=== PATIENT | female | born 1985 | race Caucasian/White ===

== ENCOUNTER 2018-07-10 05:44 | Observation (INO) | payer MEDICAID ==
[~2018-07-10] VITALS: Ht 175.3 cm; Wt 77.2 kg
[2018-07-10] VITALS (15 sets, daily range): BP systolic 93–151; BP diastolic 61–90
[2018-07-10 06:15] LABS: BASOPHILS # (AUTO) 0.1 X10'3 (0-0.2); BASOPHILS % (AUTO) 0.4 % (0-1); EOSINOPHILS # (AUTO) 0.1 X10'3 (0-0.9); EOSINOPHILS % (AUTO) 0.7 % (0-6); HEMATOCRIT 44.2 % (35.0-45.0); HEMOGLOBIN 15.2 g/dl (12.0-16.0); LYMPHOCYTES # (AUTO) 3.8 X10'3 (1.1-4.8); LYMPHOCYTES % (AUTO) 27.9 % (21-51); MEAN CORPUSCULAR HEMOGLOBIN 31.7 PG (27.0-31.0); MEAN CORPUSCULAR HGB CONC 34.3 % (33.0-36.5); MEAN CORPUSCULAR VOLUME 92.5 FL (78-98); MEAN PLATELET VOLUME 8.3 FL (7.4-10.4); MONOCYTES # (AUTO) 0.5 X10'3 (0-0.9); MONOCYTES % (AUTO) 3.8 % (2-12); NEUTROPHILS # (AUTO) 9.2 X10'3 (1.8-7.7); NEUTROPHILS % (AUTO) 67.2 % (42-75); PLATELET COUNT 321 X10'3 (140-440); RED BLOOD COUNT 4.78 X10'6 (4.20-5.60); RED CELL DISTRIBUTION WIDTH 15.2 % (11.5-14.5); WHITE BLOOD COUNT 13.6 X10'3 (4.5-11.0)
[2018-07-10] MEDS ORDERED: ondansetron/PF 4mg/2ml inj IV ONE (06:20)
[2018-07-10] MEDS ORDERED: normal saline 1000ML IV soln IVB ONE (06:20)
[2018-07-10 06:24] LABS: CLARITY,URINE CLEAR (Clear); COLOR,URINE YELLOW (Yellow); GLUCOSE, URINE NEGATIVE (Neg); KETONES,URINE NEGATIVE (Neg); LEUKOCYTE ESTERASE ,URINE NEGATIVE (Neg); NITRITES, URINE NEGATIVE (Neg); OCCULT BLOOD,URINE NEGATIVE (Neg); PROTEIN,URINE NEGATIVE (Neg); UROBILINOGEN,URINE 0.2 E.U/dL (0.2-1.0)
[2018-07-10 06:25] LABS: UA COLLECTION TYPE CLN CATCH MIDSTREAM; URINE HCG NEGATIVE (NEG)
[2018-07-10] MEDS: morphine 4 MG/ML inj SYRINge IV PRN ×4 (06:26→22:03)
[2018-07-10 06:30] LABS: ALANINE AMINOTRANSFERASE 57 U/L (12-78); ALBUMIN 3.9 G/DL (3.4-5.0); ALBUMIN/GLOBULIN RATIO 1.1 (1.1-1.5); ALKALINE PHOSPHATASE 89 IU/L (46-116); ANION GAP 6 (8-16); ASPARTATE AMINO TRANSFERASE 86 U/L (10-37); BILIRUBIN,TOTAL 0.4 MG/DL (0.1-1.0); BLOOD UREA NITROGEN 10 MG/DL (7-18); BUN/CREATININE RATIO 11.4 (6.6-38.0); CALCIUM 8.9 MG/DL (8.5-10.1); CHLORIDE 103 MMOL/L (99-107); CREATININE 0.88 MG/DL (0.40-0.90); GLUCOSE 104 MG/DL (70-104); POTASSIUM 3.6 MMOL/L (3.5-5.1); SODIUM 139 MMOL/L (135-145); TOTAL CARBON DIOXIDE 29.6 MMOL/L (24-32); TOTAL PROTEIN 7.4 G/DL (6.4-8.2); eGFR 74 ML/MIN
[2018-07-10] MEDS ORDERED: NO HOME MEDS (06:34)
[2018-07-10 06:53] LABS: LIPASE 360 U/L (73-393)
[2018-07-10] MEDS ORDERED: metroNIDAZOLE-Flagyl 500mg/NS 100 ML IV STA (09:46)
[2018-07-10] MEDS ORDERED: magnesium hydroxide 30ml (MOM) UD suspension PO PRN (10:00)
[2018-07-10] MEDS ORDERED: ondansetron/PF 4mg/2ml inj IV PRN ×2 (10:00→19:55)
[2018-07-10] MEDS ORDERED: mag hydrox/Alum hydrox/simeth 30ml oral suspension PO PRN (10:00)
[2018-07-10] MEDS ORDERED: acetaminophen 325mg tablet PO PRN (10:00)
[2018-07-10] MEDS: normal saline 1000ml 1,000 ML IV SCH ×2 (10:16→19:02)
[2018-07-10] MEDS ORDERED: sevoflurane 250ml liquid IH ONE ×3 (10:20→19:52)
[2018-07-10] MEDS ORDERED: labetalol 20mg/4ml (5mg/ml) syringe IV ONE (10:20)
[2018-07-10] MEDS ORDERED: ondansetron/PF 4mg/2ml inj ONE ×3 (10:20→19:52)
[2018-07-10] MEDS: ciprofloxacin lact 400MG/200ML 200 ML IV SCH ×2 (11:31→20:00)
[2018-07-10] MEDS ORDERED: BUPIVAcaine/PF 2.5mg/ml (0.25%) 10ml vial ONE (19:00)
[2018-07-10] MEDS ORDERED: LIDOcaine 1% 30ml preserv. free vial ONE (19:00)
[2018-07-10] MEDS: lactobacillus rhamnosus 10,000 MMU CELLS/CAPSULE PO SCH (19:40)
[2018-07-10] MEDS ORDERED: ringers solution, lacted 1,000 ML IV SCH (19:53)
[2018-07-10] MEDS ORDERED: morphine 4 MG/ML inj SYRINge IV PRN ×2 (19:55)
[2018-07-10] MEDS ORDERED: proCHLORperazine 10 MG/2 ml inj IV PRN (19:55)
[2018-07-10] MEDS ORDERED: meperidine/PF 25mg/ml syringe IV PRN ×3 (19:55)
[2018-07-10] MEDS ORDERED: fentaNYL/PF 50MCG/1 ML 2ML syringe ONE (19:57)
[2018-07-10] MEDS ORDERED: midazolam 2 mg/2 ml injection ONE (19:58)
[2018-07-10] MEDS ORDERED: dexamethasone sod phosphate 4mg/ml inj. ONE (20:43)
[2018-07-10] MEDS ORDERED: rocuronium 10mg/ml inj IV ONE (20:44)
[2018-07-10] MEDS ORDERED: glycopyrrolate 0.2mg/ml inj ONE (20:44)
[2018-07-10] MEDS ORDERED: propofol inj 20 ML IV ONE (20:44)
[2018-07-10] MEDS ORDERED: neostigmine methylsulfate 1 MG/ML 10ml vial ONE (20:44)
[2018-07-10] MEDS ORDERED: HYDROcodone/acetaminophen 5mg/325mg tablet PO PRN (21:25)
[2018-07-10] MEDS: HYDROcodone/acetaminophen 10/325mg tab PO PRN (22:58)
[2018-07-11] VITALS (7 sets, daily range): BP systolic 123–135; BP diastolic 78–86
[2018-07-11] MEDS: HYDROcodone/acetaminophen 10/325mg tab PO PRN ×5 (03:00→23:42)
[2018-07-11] MEDS: morphine 4 MG/ML inj SYRINge IV PRN ×4 (03:39→21:27)
[2018-07-11 04:50] LABS: BASOPHILS % (AUTO) 0 % (0-1); EOSINOPHILS % (AUTO) 0 % (0-6); HEMATOCRIT 41.3 % (35.0-45.0); LYMPHOCYTES # (AUTO) 0.6 X10'3 (1.1-4.8); LYMPHOCYTES % (AUTO) 5.2 % (21-51); MEAN CORPUSCULAR HEMOGLOBIN 31.7 PG (27.0-31.0); MEAN CORPUSCULAR HGB CONC 33.8 % (33.0-36.5); MEAN CORPUSCULAR VOLUME 93.7 FL (78-98); MEAN PLATELET VOLUME 9.1 FL (7.4-10.4); MONOCYTES % (AUTO) 0.3 % (2-12); NEUTROPHILS # (AUTO) 10.8 X10'3 (1.8-7.7); NEUTROPHILS % (AUTO) 94.5 % (42-75); PLATELET COUNT 257 X10'3 (140-440); RED BLOOD COUNT 4.41 X10'6 (4.20-5.60); RED CELL DISTRIBUTION WIDTH 14.9 % (11.5-14.5); WHITE BLOOD COUNT 11.4 X10'3 (4.5-11.0)
[2018-07-11 05:14] LABS: ALANINE AMINOTRANSFERASE 337 U/L (12-78); ALBUMIN 3.6 G/DL (3.4-5.0); ALKALINE PHOSPHATASE 122 IU/L (46-116); ANION GAP 6 (8-16); ASPARTATE AMINO TRANSFERASE 145 U/L (10-37); BILIRUBIN,TOTAL 0.5 MG/DL (0.1-1.0); BLOOD UREA NITROGEN 5 MG/DL (7-18); BUN/CREATININE RATIO 4.5 (6.6-38.0); CALCIUM 8.8 MG/DL (8.5-10.1); CHLORIDE 105 MMOL/L (99-107); GLUCOSE 176 MG/DL (70-104); POTASSIUM 4.2 MMOL/L (3.5-5.1); SODIUM 138 MMOL/L (135-145); TOTAL CARBON DIOXIDE 26.6 MMOL/L (24-32); TOTAL PROTEIN 7.1 G/DL (6.4-8.2); eGFR 57 ML/MIN
[2018-07-11] MEDS: normal saline 1000ml 1,000 ML IV SCH ×3 (05:56→15:56)
[2018-07-11] MEDS: lactobacillus rhamnosus 10,000 MMU CELLS/CAPSULE PO SCH ×2 (07:52→19:17)
[2018-07-11] MEDS: ciprofloxacin lact 400MG/200ML 200 ML IV SCH ×2 (07:52→19:18)
[2018-07-11] MEDS ORDERED: temazepam 15mg capsule PO PRN (23:50)
[2018-07-11] MEDS ORDERED: morphine 2 MG/ML inj. syringe IV PRN (23:50)
[2018-07-12] VITALS: BP 125/87
[2018-07-12] MEDS: normal saline 1000ml 1,000 ML IV SCH ×4 (01:56→03:08)
[2018-07-12 05:48] LABS: BASOPHILS % (AUTO) 0.1 % (0-1); EOSINOPHILS # (AUTO) 0.1 X10'3 (0-0.9); EOSINOPHILS % (AUTO) 0.9 % (0-6); HEMATOCRIT 36.5 % (35.0-45.0); HEMOGLOBIN 12.4 g/dl (12.0-16.0); LYMPHOCYTES # (AUTO) 2.5 X10'3 (1.1-4.8); LYMPHOCYTES % (AUTO) 24.7 % (21-51); MEAN CORPUSCULAR VOLUME 93.9 FL (78-98); MEAN PLATELET VOLUME 8.9 FL (7.4-10.4); MONOCYTES # (AUTO) 0.4 X10'3 (0-0.9); MONOCYTES % (AUTO) 3.9 % (2-12); NEUTROPHILS # (AUTO) 7.2 X10'3 (1.8-7.7); NEUTROPHILS % (AUTO) 70.4 % (42-75); PLATELET COUNT 226 X10'3 (140-440); RED BLOOD COUNT 3.88 X10'6 (4.20-5.60); RED CELL DISTRIBUTION WIDTH 14.7 % (11.5-14.5); WHITE BLOOD COUNT 10.2 X10'3 (4.5-11.0)
[2018-07-12 06:18] LABS: ALANINE AMINOTRANSFERASE 204 U/L (12-78); ALBUMIN 3.2 G/DL (3.4-5.0); ALBUMIN/GLOBULIN RATIO 1.1 (1.1-1.5); ALKALINE PHOSPHATASE 94 IU/L (46-116); ANION GAP 8 (8-16); ASPARTATE AMINO TRANSFERASE 44 U/L (10-37); BILIRUBIN,TOTAL 0.5 MG/DL (0.1-1.0); BLOOD UREA NITROGEN 3 MG/DL (7-18); BUN/CREATININE RATIO 3.4 (6.6-38.0); CALCIUM 8.4 MG/DL (8.5-10.1); CHLORIDE 105 MMOL/L (99-107); CREATININE 0.87 MG/DL (0.40-0.90); GLUCOSE 115 MG/DL (70-104); POTASSIUM 3.5 MMOL/L (3.5-5.1); SODIUM 141 MMOL/L (135-145); TOTAL CARBON DIOXIDE 28.2 MMOL/L (24-32); TOTAL PROTEIN 6.2 G/DL (6.4-8.2); eGFR 75 ML/MIN
[2018-07-12 07:00] VITALS: BP 111/77
[2018-07-12] MEDS: ciprofloxacin lact 400MG/200ML 200 ML IV SCH (07:27)
[2018-07-12] MEDS: HYDROcodone/acetaminophen 10/325mg tab PO PRN (07:27)
[2018-07-12] MEDS: lactobacillus rhamnosus 10,000 MMU CELLS/CAPSULE PO SCH (07:27)
[2018-07-12] MEDS: morphine 4 MG/ML inj SYRINge IV PRN (10:08)
[2018-07-12] MEDS ORDERED: HYDR-569 PO (10:53)
[2018-07-12] MEDS ORDERED: ONDA4TAB6 PO (10:53)
[2018-07-12 11:00] VITALS: BP 117/79
== END 2018-07-12 13:33 | disposition home or self-care (01) ==
LOC: ER 05:46 → ED HOLD 09:56 → EDBEDREQ 12:07 → SUR 3N 12:37 → PACU 19:09 → SUR 3N 22:15
PROVIDERS: ADMIT Family Medicine; ATTEND Family Medicine
DX: K80.10 Calculus of gallbladder with chronic cholecystitis without obstruction (principal); F17.210 Nicotine dependence, cigarettes, uncomplicated
CPT/HCPCS: 36415; 47562; 76700; 80053; 81003; 81025; 83690; 84484; 85025; 87070; 93005; 96365; 96366; 96367; 96375; 96376; 99285; G0378; J0744; J1100; J2175; J2250; J2270; J2405; J2704; J2710; J3010; J3490; J7030; J7120; A7000